=== PATIENT | female | born 1980 | race Caucasian/White ===

== ENCOUNTER → 2020-08-03 | Day surgery (SDC) | payer BC | END | disposition home or self-care (01) | LOC: JRADIR 09:37 | PROVIDERS: ATTEND Radiology Diagnostic Radiology | PROC: 0G9K3ZX Drainage of Thyroid Gland, Percutaneous Approach, Diagnostic (ICD-10-PCS; principal; 2020-08-03) | DX: E04.1 Nontoxic single thyroid nodule (principal) | CPT/HCPCS: 76942; 88173; 88305-TC ==

== ENCOUNTER → 2020-08-09 | Day surgery (SDC) | payer BC | END | disposition home or self-care (01) | LOC: JRADIR 11:36 | PROVIDERS: ATTEND Radiology Diagnostic Radiology | PROC: 0G9G3ZX Drainage of Left Thyroid Gland Lobe, Percutaneous Approach, Diagnostic (ICD-10-PCS; principal; 2020-08-09) | DX: E04.1 Nontoxic single thyroid nodule (principal) | CPT/HCPCS: 76942; 88173; 88305-TC ==

== ENCOUNTER → 2020-08-12 | Day surgery (SDC) | payer BC | END | disposition home or self-care (01) | LOC: JRADUS-SUR 10:45 | PROVIDERS: ATTEND Surgery Surgical Oncology | PROC: 0H9V3ZX Drainage of Bilateral Breast, Percutaneous Approach, Diagnostic (ICD-10-PCS; principal; 2020-08-12) | DX: N60.02 Solitary cyst of left breast (principal); N60.01 Solitary cyst of right breast | CPT/HCPCS: 76942-TC; 87899; 88173; 88305-TC ==

== ENCOUNTER 2021-10-25 21:37 | Emergency (ER) | payer BC ==
[2021-10-25 21:50] VITALS: TEMP 98.8; BMI 22.8
[2021-10-25] MEDS ORDERED: SODIUM CHLORIDE 1,000 ML IV SCH (22:00)
[2021-10-25 22:31] LABS: BASO % 0.9 % (0-2.0); EOS % 1.6 % (0-4.5); HEMATOCRIT 37.8 % (32.4-45.2); HEMOGLOBIN 12.8 GM/dL (10.7-15.3); MCH 28.9 pg (25.7-33.7); MCHC 33.9 g/dl (32.0-36.0); MEAN CELL VOLUME 85.5 fl (80-96); MEAN PLT VOLUME 9.1 fl (7.5-11.1); MONO % 6.9 % (3.8-10.2); NEUT % 48.6 % (42.8-82.8); PLATELET COUNT 167 10^3/uL (134-434); RBC 4.43 M/mm3 (3.60-5.2); RDW 13.5 % (11.6-15.6); WHITE BLOOD COUNT 6.5 K/mm3 (4.0-10.0)
[2021-10-25 22:36] LABS: INR 1.03 (0.83-1.09); PROTHROMBIN TIME (PATIENT) 11.9 SEC (9.7-13.0)
[2021-10-25 22:38] LABS: URINE APPEARANCE CLEAR; URINE BILIRUBIN NEGATIVE (NEGATIVE); URINE COLOR YELLOW; URINE GLUCOSE (UA) NEGATIVE (NEGATIVE); URINE KETONE NEGATIVE (NEGATIVE); URINE LEUK ESTERASE TRACE (NEGATIVE); URINE NITRITE NEGATIVE (NEGATIVE); URINE PROTEIN NEGATIVE (NEGATIVE); URINE UROBILINOGEN 0.2 mg/dL (0.2-1.0)
[2021-10-25 22:39] LABS: ACTIVATED PTT 28.5 SECONDS (25.2-36.5)
[2021-10-25 22:44] LABS: URINE RBC 0.3 /uL (0-23.9); URINE WBC 13 /uL (0-25.8)
[2021-10-25 22:45] LABS: EPI CELLS 5 /uL (0-25.1); HYALINE CASTS 0 /uL (0-3.1)
[2021-10-25 22:49] LABS: CALCIUM 8.9 mg/dL (8.5-10.1)
[2021-10-25 22:51] LABS: ALBUMIN 3.1 g/dl (3.4-5.0)
[2021-10-25 22:52] LABS: BLOOD UREA NITROGEN 9.9 mg/dL (7-18)
[2021-10-25 22:54] LABS: CREATININE 0.8 mg/dL (0.55-1.3)
[2021-10-25 22:56] LABS: TOT PROT 5.6 g/dl (6.4-8.2)
[2021-10-25 22:57] LABS: BILIRUBIN,TOTAL 0.4 mg/dL (0.2-1)
[2021-10-26] MEDS ORDERED: ACETAMINOPHEN 325 MG TABLET (FP) ONE (00:04)
[2021-10-26 00:11] VITALS: BP 108/68; PULSE 70
[2021-10-27 10:08] LABS: SARS-CoV-2 NAA Not Detected (Not Detected)
== END 2021-10-26 00:16 | disposition home or self-care (01) ==
LOC: JER 21:37
PROC: 3E0333Z Introduction of Anti-inflammatory into Peripheral Vein, Percutaneous Approach (ICD-10-PCS; principal; 2021-10-25)
DX: R20.2 Paresthesia of skin (principal); R30.0 Dysuria; R42 Dizziness and giddiness; R07.9 Chest pain, unspecified
CPT/HCPCS: 36415; 70450-TC; 70551-TC; 71045-TC-FY; 80053; 80061; 81003; 82550; 82962; 83036; 84484; 84703; 85025; 85610; 85730; 86850; 86900; 86901; 93005; 93010; 99285-25; C9803; U0003; U0005

== ENCOUNTER 2024-09-02 16:37 | Emergency (ER) | payer BC ==
[2024-09-02 16:57] VITALS: BP 106/71; PULSE 80; RESP 18; TEMP 97.7; BMI 20.5
== END 2024-09-02 17:28 | disposition home or self-care (01) ==
LOC: JERFT 16:37
DX: R09.81 Nasal congestion (principal); H92.01 Otalgia, right ear; Z20.822 Contact with and (suspected) exposure to COVID-19
CPT/HCPCS: 0241U-QW; 99283-25